=== PATIENT | male | born 1985 | race Caucasian/White ===

== ENCOUNTER 2019-10-31 17:29 | Emergency (ER) | payer SELFPAY ==
--- NOTE | 2019-10-31 17:52 | ER Document Report ---
ED Medical Screen (RME) - General Chief Complaint: Testicular Pain Stated Complaint: TESTICULAR PAIN Time Seen by Provider: 10/31/19 17:41 Mode of Arrival: Ambulatory Information source: Patient - HPI Notes: 10/31/19 17:50 34-year-old male presents the ED with complaints of right testicular pain for the last 2 months ever since he went on a 10 mile run. Patient states the pain is become progressive over the last few days. He did have it checked out by his primary care we do not feel any lumps cannot say that. Patient states that he has significant tenderness to his right testy. Denies any urinary retention, denies any penile issues, denies any fevers chills, n/v/d. I have greeted and performed a rapid initial assessment of this patient. A comprehensive ED assessment and evaluation of the patient, analysis of test results and completion of the medical decision making process will be conducted by additional ED providers. PHYSICAL EXAMINATION: GENERAL: Well-appearing, well-nourished and in no acute distress. HEAD: Atraumatic, normocephalic. EYES: Pupils equal round extraocular movements intact, conjunctiva are normal. NECK: Normal range of motion CV: s1, s2 regular Unable to do exam in triage due to not having a bed for examination - Related Data Allergies/Adverse Reactions: No Known Allergies Allergy (Verified 10/31/19 17:50) Physical Exam - Vital signs Vitals: Temp Pulse Resp BP Pulse Ox 98.6 F 80 16 145/95 H 97 10/31/19 17:38 10/31/19 17:38 10/31/19 17:38 10/31/19 17:38 10/31/19 17:38 Course - Vital Signs Vital signs: Temp Pulse Resp BP Pulse Ox 98.6 F 80 16 145/95 H 97 10/31/19 17:38 10/31/19 17:38 10/31/19 17:38 10/31/19 17:38 10/31/19 17:38
[2019-10-31 18:29] LABS: APPEARANCE,URINE CLEAR; BILIRUBIN,URINE NEGATIVE (NEGATIVE); COLOR,URINE STRAW; GLUCOSE, URINE NEGATIVE (NEGATIVE); KETONES,URINE NEGATIVE (NEGATIVE); LEUKOCYTE ESTERASE,URINE NEGATIVE (NEGATIVE); NITRITE,URINE NEGATIVE (NEGATIVE); PROTEIN,URINE NEGATIVE (NEGATIVE); URINE SPECIFIC GRAVITY 1.012; UROBILINOGEN,URINE NEGATIVE mg/dL (<2.0)
--- NOTE | 2019-10-31 18:40 | ER Document Report ---
ED General - General Chief Complaint: Testicular Pain Stated Complaint: TESTICULAR PAIN Time Seen by Provider: 10/31/19 17:41 Mode of Arrival: Ambulatory Information source: Patient - HPI Notes: Patient presents the right testicle pain. He states this started approximate month and a half ago. The pain is been intermittent and occurs randomly. He has not noticed anything that makes the pain start or stop. Nothing makes it better or worse. There is no radiation of the pain. He has not had any pain with urination. No abdominal pain. He denies any trauma or injury to the area. He states he has not noticed any swelling or masses. He does states occasionally has some right testicle pain and wanted to make sure that he did not have cancer. The pain is been an aching sensation when he does have a and is been mild to moderate. - Related Data Allergies/Adverse Reactions: No Known Allergies Allergy (Verified 10/31/19 17:50) Past Medical History - General Information source: Patient - Social History Smoking Status: Never Smoker Chew tobacco use (# tins/day): No Frequency of alcohol use: Social Drug Abuse: None Family History: Reviewed & Not Pertinent Patient has homicidal ideation: No Review of Systems - Review of Systems Constitutional: denies: Chills, Fever Cardiovascular: denies: Chest pain, Palpitations Respiratory: denies: Cough, Short of breath -: Yes All other systems reviewed and negative Physical Exam - Vital signs Vitals: Temp Pulse Resp BP Pulse Ox 98.6 F 80 16 145/95 H 97 10/31/19 17:38 10/31/19 17:38 10/31/19 17:38 10/31/19 17:38 10/31/19 17:38 Interpretation: Normal - General General appearance: Appears well, Alert - HEENT Head: Normocephalic, Atraumatic Eyes: Normal Pupils: PERRL - Respiratory Respiratory status: No respiratory distress Chest status: Nontender Breath sounds: Normal Chest palpation: Normal - Cardiovascular Rhythm: Regular Heart sounds: Normal auscultation Murmur: No - Abdominal Inspection: Normal Distension: No distension Bowel sounds: Normal Tenderness: Nontender Organomegaly: No organomegaly - Back Back: Normal, Nontender - Extremities General upper extremity: Normal inspection, Nontender, Normal color, Normal ROM, Normal temperature General lower extremity: Normal inspection, Nontender, Normal color, Normal ROM, Normal temperature, Normal weight bearing. No: Connie's sign - Neurological Neuro grossly intact: Yes Cognition: Normal Orientation: AAOx4 [place] Coma Scale Eye Opening: Spontaneous Radha Coma Scale Verbal: Oriented [place] Coma Scale Motor: Obeys Commands [place] Coma Scale Total: 15 Speech: Normal Motor strength normal: LUE, RUE, LLE, RLE Sensory: Normal - Psychological Associated symptoms: Normal affect, Normal mood - Skin Skin Temperature: Warm Skin Moisture: Dry Skin Color: Normal Course - Re-evaluation Re-evalutation: 10/31/19 19:21 Patient presents with right testicle pain. He does have a small varicocele there on ultrasound. Otherwise unremarkable ultrasound. Urinalysis is unremarkable. Unremarkable. Patient will be discharged home to follow-up with urology. - Vital Signs Vital signs: Temp Pulse Resp BP Pulse Ox 98.6 F 80 16 145/95 H 97 10/31/19 17:38 10/31/19 17:38 10/31/19 17:38 10/31/19 17:38 10/31/19 17:38 - Diagnostic Test Radiology reviewed: Image reviewed, Reports reviewed Discharge - Discharge Clinical Impression: Right varicocele Condition: Stable Disposition: HOME, SELF-CARE Instructions: Testicular Pain ([facility]) Forms: Return to Work Referrals: CYRUS GARY MD [NO LOCAL MD] - Follow up in 3-5 days
--- NOTE | 2019-10-31 19:16 | RADIOLOGY REPORT (SQ) ---
EXAM DESCRIPTION: U/S SCROTUM W/DOPPLER IMAGES COMPLETED DATE/TIME: 10/31/2019 7:03 pm REASON FOR STUDY: right testicular pain x2 months, worse in 2days COMPARISON: None. TECHNIQUE: Static and realtime love scale imaging of the scrotum and testes. Selected color Doppler and spectral images recorded to document blood flow. LIMITATIONS: None. FINDINGS: RIGHT: TESTICLE: Normal size, 4 cm. Normal echotexture. Normal blood flow. No mass. EPIDIDYMIS: 12 mm. Normal. HYDROCELE OR VARICOCELE: Small varicocele, 3.5 mm. HERNIA OR EXTRA-TESTICULAR MASS: No. OTHER: No other significant finding. LEFT: TESTICLE: Normal size, 4.1 cm. Normal echotexture. Normal blood flow. No mass. EPIDIDYMIS: Prominent, 18 mm. HYDROCELE OR VARICOCELE: No. HERNIA OR EXTRA-TESTICULAR MASS: No. OTHER: No other significant finding. IMPRESSION: Blood flow to both testicles. Small varicocele on the right. Left epididymis is promin ent. Lack of symptoms on the left mitigates against epididymitis. No hernia is seen. TECHNICAL DOCUMENTATION: JOB ID: [id number] [employer]- All Rights Reserved Reading location - IP/workstation name: [email or web address]
[2019-10-31 19:34] VITALS: BP 121/72
[2019-10-31 20:06] LABS: CHLAM PCR NOT DETECTED (NOT DETECT)
== END 2019-10-31 19:34 | disposition home or self-care (01) ==
LOC: ER 17:29
DX: I86.1 Scrotal varices (principal); N50.811 Right testicular pain
CPT/HCPCS: 76870; 81001; 87491; 87591; 93976; 99284